=== PATIENT | male | born 1965 | race Caucasian/White ===

== ENCOUNTER 2017-02-07 16:00 | Emergency (ER) | payer OTHER ==
[~2017-02-07] VITALS: Ht 175.3 cm; Wt 84.0 kg
[2017-02-07 16:05] VITALS: Ht 175.3 cm; Wt 84.0 kg
[2017-02-07] MEDS ORDERED: HYDROCODONE/APAP (5/325) TAB PO ONE (16:30)
[2017-02-07] MEDS ORDERED: IBUPROFEN 800 MG TAB PO ONE (16:30)
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
--- NOTE | 2017-02-07 17:52 | RADRPT ---
PROCEDURE: XR Left foot. CLINICAL INDICATION: Left foot pain, trauma TECHNIQUE: Three views of the left foot were obtained. COMPARISON: No prior studies are available for comparison. FINDINGS: There are transverse acute fractures near the bases of the second, third, and fourth metatarsals. There is significant forefoot soft tissue swelling. Overall alignment is preserved. There is mild first metatarsophalangeal joint osteoarthrosis. There is a moderate sized plantar calc aneal enthesophyte. IMPRESSION: 1. Acute transverse fractures near the bases of the second, third, and fourth metatarsals. Recommend CT for further evaluation and assessment of any additional midfoot fractures. 2. Significant forefoot soft tissue swelling. RPTAT: UU .Gus Starr MD, MD Date Time Electronically viewed and signed by .Gus Starr MD, on 02/07/2017 17:52 .K/
[2017-02-07] MEDS ORDERED: HYDROmorphONE 1 MG/ML SYG IM STA ×2 (18:05→21:19)
--- NOTE | 2017-02-07 20:19 | RADRPT ---
PROCEDURE: CT of the left foot and ankle CLINICAL INDICATION: Left foot and ankle pain, fracture TECHNIQUE: Axial images through the left foot without IV contrast. Coronal and sagittal reformat s. Images were interpreted at an independent PACS workstation. CTDI 18.42 mGy DLP 71 7.35 mGy-cm DICOM Images are available One or more of the following dose reduction techniques were used: Automated exposure control Adjustment of the mA and / or kV according to patient size Use of iterative reconstruction technique. COMPARISON: Radiographs of the left foot same day FINDINGS: There are acute slightly comminuted fractures of the second, third, and fourth metatarsals with intr a-articular extension involving the third and fourth metatarsal bases and mild displacement. There i s also evidence of tiny chip fractures involving the base of the first metatarsal and the medial cun eiform (sagittal and 15 and coronal 83). Overall alignment at the Lisfranc joint appears normal on t his nonweightbearing study. There is also the indeterminate possibly acute fracture at the base of t he fifth distal phalanx. There are no additional fractures identified. There is moderate dorsal soft tissue swelling and hematoma. There is an os trigonum with cystic lowry ge at the synchondrosis. There is moderate first metatarsophalangeal joint osteoarthrosis. There is a chronic-appearing ununited anterior calcaneal fracture. IMPRESSION: 1. Acute slightly comminuted fractures involving the second, third, and fourth metatarsals including intra-articular components at the third and fourth metatarsal bases. Additional tiny chip fractures involving the medial cuneiform and first metatarsal base. 2. Age indeterminate possibly acute fracture at the base of the fifth distal phalanx. 3. Remote ununited anterior process calcaneal fracture. 4. Overall normal alignment on this nonweightbearing study. 5. Moderate dorsal soft tissue swelling and hematoma. RPTAT: UU .Gus Starr MD, Date Time Electronically viewed and signed by .Gus Starr MD, on 02/07/2017 20:19 .K/
[2017-02-07 20:25] VITALS: BP 143/82; PULSE 87; RESP 16; TEMP 97.5
[2017-02-07] MEDS ORDERED: HYDR-902 PO (20:56)
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
== END 2017-02-07 22:10 | disposition home or self-care (01) ==
LOC: E/R 16:00
DX: S92.322A Displaced fracture of second metatarsal bone, left foot, initial encounter for closed fracture (principal); R40.2252 Coma scale, best verbal response, oriented, at arrival to emergency department; S92.332A Displaced fracture of third metatarsal bone, left foot, initial encounter for closed fracture; S92.342A Displaced fracture of fourth metatarsal bone, left foot, initial encounter for closed fracture; R40.2142 Coma scale, eyes open, spontaneous, at arrival to emergency department; R40.2362 Coma scale, best motor response, obeys commands, at arrival to emergency department; R07.9 Chest pain, unspecified; V49.40XA Driver injured in collision with unspecified motor vehicles in traffic accident, initial encounter
CPT/HCPCS: 29515; 71020; 73630; 73700; 96372; J1170; Z7502; Z7610